=== PATIENT | male | born 1975 | race Caucasian/White ===

== ENCOUNTER → 2018-05-20 13:58 | Outpatient (CLI) | payer BC, SELFPAY ==
--- NOTE | 2018-05-20 14:06 | CA_ITS ---
PROCEDURE: 2-D M-mode and color Doppler study INDICATIONS FOR THE TEST: Chest pain COPD Heart Murmur Tobacco Smoking+ Palpitations Fatigue+ Syncope Edema+ Hypertension Diabetes Mellitus Rheumatic Fever SOB+ROWELL+Obesity Hyperlipidemia Family History HD Additional History PATIENT INFORMATION HEIGHT: 70 WEIGHT: 236 GENDER: Male B/P: 120/70 2-D/M-MODE INTERPRETATION: 2-D MEASUREMENTS OBSERVED VALUES IN CMS Right Ventricular Dimension (RVDd) 2.2 Interventricular Septum (Thickness)(IVsd) 1.5 Left Ventricular Internal Dimensions(LVIDd) 4.5 Left Ventricular Posterior Wall (Thickness)(LVPWd) 1.5 Aortic Root 3.3 Aortic Cusp Separation 2.2 Left Atrial Dimensions (LAD) 3.9 2D 1. Left atrium is mildly enlarged, left ventricle is normal size, there is mild concentric left ventricular hypertrophy, visually estimated ejection fraction of 55% with no regional wall motion abnormality, endocardial surface of poorly visualized. 2. The right atrium and right ventricle are normal size and contractility. 3. The aortic valve is minimally thickened and fibrosed. 4. The mitral and tricuspid valvular grossly normal. 5. The pulmonic valve is poorly visualized. 6. No significant pericardial effusion noted. DOPPLER INTERROGATION: Doppler interrogation of the aortic, mitral and tricuspid valve reveals presence of mild mitral and tricuspid regurgitation, tricuspid regurgitation jet velocity is insufficient for calculation of the right ventricular systolic pressure, diastolic parameters are inconclusive. CONCLUSION: 1. Technically difficult study, endocardial surface of poorly visualized. 2. Mildly enlarged left atrium, normal left ventricular size, mild concentric left ventricular hypertrophy, visually estimated ejection fraction 55% with no regional wall motion abnormality. Diastolic parameters are inconclusive. 3. Mild mitral and tricuspid regurgitation. 4. No significant pericardial effusion noted.
== END ==
PROVIDERS: Family Provider Family Medicine; PCP Emergency Medicine; Visit Provider Emergency Medicine
DX: R06.02 Shortness of breath (principal)
CPT/HCPCS: 93306

== ENCOUNTER → 2018-07-15 14:34 | Outpatient (CLI) | payer BC, SELFPAY | PROVIDERS: PCP Family Medicine; Visit Provider Emergency Medicine | DX: R06.83 Snoring (principal); E66.9 Obesity, unspecified; R53.83 Other fatigue | CPT/HCPCS: G0399 ==

== ENCOUNTER → 2020-05-08 14:28 | Outpatient (CLI) | payer BC, SELFPAY ==
[2020-05-08 15:09] LABS: Basophils % 0.5 % (0.1-2.0); Eosinophils # 0.1 K/mm3 (0.0-0.4); Eosinophils % 1.6 % (0.1-12.0); Hematocrit 48.4 % (42.0-52.0); Lymphocytes % 23.6 % (10-50); Mean Corpuscular HGB Conc 35.1 g/dL (31.8-35.4); Mean Corpuscular Hemoglobin 31.4 pg (27.0-31.2); Mean Corpuscular Volume 89.4 fl (80-94); Mean Platelet Volume 7.7 fl (7.4-10.4); Monocytes # 0.5 K/mm3 (0.1-1.0); Monocytes % 5.6 % (1.7-9.3); Neutrophils # 5.9 K/mm3 (1.8-7.8); Neutrophils % 68.8 % (37.0-80.0); Platelet Count 240 K/mm3 (142-424); Red Blood Count 5.41 M/mm3 (4.60-6.20); White Blood Count 8.5 K/mm3 (4.8-10.8)
[2020-05-08 16:07] LABS: Chloride 102 mmol/L (98-107); Potassium 4.1 mmoL/L (3.5-5.1); Sodium 139 mmol/L (136-145)
[2020-05-08 16:10] LABS: Alanine Aminotransferase 22 U/L (12-78); Albumin Level 4.4 g/dl (3.5-5.0); Albumin/Globulin Ratio 1.7 (1.1-1.8); Alkaline Phosphatase 77 U/L (38-126); Anion Gap 13.1 mEq/L (5-15); Aspartate Amino Transferase 25 U/L (17-59); Bilirubin,Total 0.6 mg/dl (0.2-1.3); Blood Urea Nitrogen 15 mg/dl (9-20); Calcium 9.3 mg/dl (8.4-10.2); Carbon Dioxide 28 mmol/L (22.0-30.0); Estimated Glomerular Filt Rate 106 ml/min (>60); GFR (African American) 128 ML/MIN (>60); Globulin 2.6 g/dL (1.3-3.2); Glucose 85 mg/dl (74-100)
[2020-05-08 16:41] LABS: Thyroid Stimulating Hormone 1.13 uIU/mL (0.465-4.68)
[2020-05-08 17:18] LABS: Coronavirus 19 IgG Antibody Negative (Negative); Coronavirus 19 IgM Antibody Negative (Negative)
[2020-05-10 10:16] LABS: Vitamin B12 378 pg/mL (232-1245)
[2020-05-11 10:16] LABS: EBV Ab VCA, IgG 89.7 U/mL (0.0-17.9); EBV Ab VCA, IgM <36.0 U/mL (0.0-35.9)
== END ==
PROVIDERS: PCP Family Medicine; Visit Provider Physician Assistant
DX: Z03.818 Encounter for observation for suspected exposure to other biological agents ruled out (principal)
CPT/HCPCS: 36415; 80053; 82607; 84443; 85025; 86328; 86664; 86665; U0003

== ENCOUNTER 2024-07-26 15:39 | Outpatient (CLI) | payer BC, SELFPAY ==
--- NOTE | 2024-07-26 | ECG_ITS ---
APPROVED REPORT Exam: Resting ECG HR:77 bpm ECG Measurements Heart Rate 77 AXES WY 152 P 38 QRSd 94 QRS 15 QT 350 T 24 QTc 382 Conclusion SINUS RHYTHM NORMAL ECG UNCONFIRMED REPORT Electronically signed by : Isrrael Gay MD 07/30/2024 12:52:08
[2024-07-26 16:46] LABS: Basophils # 0.1 K/mm3 (0-0.2); Basophils % 0.7 % (0.1-2.0); Eosinophils # 0.1 K/mm3 (0.0-0.4); Eosinophils % 1.2 % (0.1-12.0); Hematocrit 48.4 % (42.0-52.0); Hemoglobin 16.4 g/dL (14.1-18.0); Lymphocytes # 1.8 K/mm3 (0.7-4.5); Lymphocytes % 19.8 % (10-50); Mean Corpuscular HGB Conc 33.8 g/dL (31.8-35.4); Mean Corpuscular Hemoglobin 30.5 pg (27.0-31.2); Mean Corpuscular Volume 90.3 fl (80-94); Mean Platelet Volume 7.5 fl (7.4-10.4); Monocytes # 0.5 K/mm3 (0.1-1.0); Monocytes % 5.3 % (1.7-9.3); Neutrophils # 6.6 K/mm3 (1.8-7.8); Platelet Count 274 K/mm3 (142-424); Red Blood Count 5.36 M/mm3 (4.60-6.20); Red Cell Distribution Width 13.1 % (11.5-17.5); White Blood Count 9.1 K/mm3 (4.8-10.8)
[2024-07-26 17:19] LABS: 25-OH Vitamin D, Total 48.3 ng/mL (30-100)
[2024-07-26 17:22] LABS: Erythrocyte Sedimentation Rate 6 mm/hr (0-15)
[2024-07-26 17:42] LABS: Albumin Level 4.2 g/dl (3.5-5.0); Chloride 107 mmol/L (98-107); Potassium 3.8 mmoL/L (3.5-5.1); Sodium 139 mmol/L (136-145)
[2024-07-26 17:44] LABS: Blood Urea Nitrogen 14 mg/dl (9-20); Estimated Glomerular Filt Rate 104 ml/min (>60); GFR (African American) 125 ML/MIN (>60)
[2024-07-26 17:45] LABS: Alanine Aminotransferase 23 U/L (12-78); Alkaline Phosphatase 63 U/L (38-126); Anion Gap 12.8 mEq/L (5-15); Aspartate Amino Transferase 24 U/L (17-59); Bilirubin,Total 0.5 mg/dl (0.2-1.3); Calcium 8.9 mg/dl (8.4-10.2); Carbon Dioxide 23 mmol/L (22.0-30.0); Chol/HDL Ratio 4.8 (1-3.5); Cholesterol 181 mg/dl (140-200); Globulin 2.1 g/dL (1.3-3.2); Glucose 116 mg/dl (74-100); HDL Cholesterol 38 mg/dl (40-60); Total Protein,Serum 6.3 g/dl (6.3-8.2); Triglycerides 75 mg/dl (30-150); VLDL Cholesterol 15 mg/dL (0-40)
[2024-07-26 17:56] LABS: Direct LDL Cholesterol 126.75 mg/dL (100-129)
[2024-07-26 18:07] LABS: Troponin I < 0.01 ng/ml (0.00-0.034)
[2024-07-26 18:16] LABS: Thyroid Stimulating Hormone 1.02 uIU/mL (0.465-4.68)
[2024-07-26 19:36] LABS: Vitamin B12 337 pg/mL (239-931)
== END 2024-07-26 23:59 | disposition home or self-care (01) ==
LOC: LAB 15:41
PROVIDERS: PCP Family Medicine; Visit Provider Family Medicine
DX: E78.5 Hyperlipidemia, unspecified (principal); R07.9 Chest pain, unspecified; R53.83 Other fatigue; E55.9 Vitamin D deficiency, unspecified
CPT/HCPCS: 36415; 80050; 80053; 80061; 82306; 82607; 84443; 84484; 85025; 85651; 93005

== ENCOUNTER 2024-08-04 11:48 | Outpatient (CLI) | payer BC, SELFPAY ==
--- NOTE | 2024-08-04 | CA_ITS ---
APPROVED REPORT Exam: Exercise Treadmill Technologist: Karla Escudero Ht: 5 ft 10 in Wt: 219 lbs BSA: 2.17 m2 HR: 60 bpm BP: 128/81 mmHg Rhythm: Nsr, normal Medical History Medical History: Smoking Allergies: No known drug allergies Cardiac Risk Factors: FHX of CAD, Smoking Stress Test Details Test: Exercise stress testing was performed using a modified Simba protocol. HR Resting HR: 60 bpm Max Heart Rate (APMHR): 173 bpm Max HR Achieved: 158 bpm Target HR (85% APMHR): 147 bpm % of APMHR: 91 Recovery HR: 97 bpm BP Resting BP: 128.0/81.0 mmHg Max BP: 186.0/80.0 mmHg Recovery BP: 154.0/76.0 mmHg ECG Resting ECG: Nsr, normal Clinical Highest Stage Achieved: Stage 4: 4.2 mph at 16% grade. Stress ECG Conclusion Pt exercised 9:44 on Simba protocol Max HR: 158 % of PM: 91% Max BP: 186/80 Mets: 11.5 Test stopped due to: soa and leg fatigue No cp Rare fusion beat Allowing for motion artifact, the ST response to exercise is normal Normal GXT GXT only (no imaging) Electronically signed by : Demi Abreu MD 08/07/2024 01:38:23
== END 2024-08-04 23:59 | disposition home or self-care (01) ==
LOC: RT 11:51
PROVIDERS: PCP Family Medicine; Visit Provider Family Medicine
DX: R07.9 Chest pain, unspecified (principal)
CPT/HCPCS: 93017; 93018